=== PATIENT | male | born 2005 | race African-American/Black ===

== ENCOUNTER 2024-08-27 11:10 | Emergency (ER) | payer MEDICAID, OTHER ==
[~2024-08-27] VITALS: Ht 175.3 cm; Wt 69.0 kg
[2024-08-27 11:22] VITALS: O2SAT 98
[2024-08-27 11:24] VITALS: BP 122/73; PULSE 59; RESP 18; TEMP 98.8; O2SAT 99
[2024-08-27] MEDS ORDERED: CLOT15CR27 TP (14:10)
== END 2024-08-27 14:44 | disposition home or self-care (01) ==
LOC: ER 11:10
DX: B35.4 Tinea corporis (principal); J45.909 Unspecified asthma, uncomplicated
CPT/HCPCS: 99282